=== PATIENT | female | born 1990 | race Caucasian/White ===

== ENCOUNTER 2018-07-24 12:06 | Emergency (ER) | payer OTHER ==
[2018-07-24 12:39] VITALS: BP 155/84
--- NOTE | 2018-07-24 12:51 | UC ---
Skin Complaint HPI - HPI Summary HPI Summary: 28-year-old woman comes in today with chief complaint of an acne flare up. She has a history of cystic acne. There is an area in the right chin that's been swelling up she's been using benzoyl peroxide and is getting worse. She is visiting town from [place] she tells me that her international first officer in [place] usually gives her a shot of Kenalog into the area or she can use a Medrol Dosepak to decrease the inflammation. - History of Current Complaint Chief Complaint: UCSkin Time Seen by Provider: 07/24/18 12:40 Stated Complaint: SKIN CONCERN Hx Last Menstrual Period: ~07/10/18 Pain Intensity: 1 - Allergy/Home Medications Allergies/Adverse Reactions: Allergies Allergy/AdvReac Type Severity Reaction Status Date / Time No Known Allergies Allergy Verified 07/24/18 12:33 Home Medications: Home Medications Ibuprofen TAB* [Advil TAB*] 400 - 600 mg PO Q6H PRN 07/24/18 [History Confirmed 07/24/18] buPROPion SR TAB* [Wellbutrin SR TAB*] 200 mg PO DAILY 07/24/18 [History Confirmed 07/24/18] PMH/Surg Hx/FS Hx/Imm Hx Previously Healthy: Yes - Surgical History Surgical History: Yes Surgery Procedure, Year, and Place: Left Knee Arthroscopy, 1999 - Family History Known Family History: Positive: Non-Contributory - Social History Alcohol Use: Weekly Alcohol Amount: 2-3 glasses wine or beer Substance Use Type: None Smoking Status (MU): Never Smoked Tobacco Review of Systems All Other Systems Reviewed And Are Negative: Yes Constitutional: Positive: Negative Skin: Positive: Other - see hpi Eyes: Positive: Negative ENT: Positive: Negative Respiratory: Positive: Negative Cardiovascular: Positive: Negative Gastrointestinal: Positive: Negative Motor: Positive: Negative Neurovascular: Positive: Negative Musculoskeletal: Positive: Negative Neurological: Positive: Negative Psychological: Positive: Negative Is Patient Immunocompromised?: No Physical Exam Triage Information Reviewed: Yes Appearance: Well-Appearing, No Pain Distress, Well-Nourished Vital Signs: Initial Vital Signs Temp 97.9 F 07/24/18 12:31 Pulse 85 07/24/18 12:31 Resp 15 07/24/18 12:31 BP 155/84 07/24/18 12:31 Pulse Ox 100 07/24/18 12:31 Vital Signs Reviewed: Yes Eye Exam: Normal ENT: Negative: Nasal drainage Neck exam: Normal Neck: Positive: Supple Respiratory: Positive: No respiratory distress Musculoskeletal Exam: Normal Musculoskeletal: Positive: Strength Intact, ROM Intact Neurological Exam: Normal Neurological: Positive: Alert, Muscle Tone Normal Psychological Exam: Normal Psychological: Positive: Age Appropriate Behavior Skin: Positive: Other - Of the right side of her chin the patient has some swelling with minimal erythema nondraining consistent with cystic acne. Course/Dx - Course Course Of Treatment: We will have the patient on doxycycline 100 mg by mouth twice a day 10 days and also Medrol Dosepak and she can follow-up with her international first officer when she gets back home to [place]. - Diagnoses Provider Diagnosis: Cystic acne Discharge - Sign-Out/Discharge Documenting (check all that apply): Patient Departure All imaging exams completed and their final reports reviewed: No Studies - Discharge Plan Condition: Stable Disposition: HOME Prescriptions: DOXYcycline CAP(*) [DOXYcycline 100MG CAP(*)] 100 mg PO BID #20 cap methylPREDNISolone [Medrol Dosepak 4 MG*] 0 mg PO .SEE ALEXANDER INSTRUCTION #1 alexander Patient Education Materials: Folliculitis (ED) Referrals: [facility] [place] [place] [facility] [Outside] Additional Instructions: FOLLOW UP WITH YOUR DOCTOR IF NOT COMPLETELY IMPROVED. GET RECHECKED FOR ANY WORSENING OF YOUR CONDITION OR QUESTIONS OR CONCERNS. - Billing Disposition and Condition Condition: STABLE Disposition: Home
== END 2018-07-24 12:55 | disposition home or self-care (01) ==
LOC: UCCORT 12:06
DX: L70.0 Acne vulgaris (principal)
CPT/HCPCS: 99202; G0463